=== PATIENT | male | born 1985 | race Caucasian/White ===

== ENCOUNTER 2021-03-27 00:25 | Emergency (ER) | payer SELFPAY ==
[~2021-03-27] VITALS: Ht 188 cm; Wt 90.9 kg
[2021-03-27 00:25] VITALS: BP 131/87
[2021-03-27 01:20] LABS: COVID AG,FIA SOURCE NASOPHARYNGEAL
== END 2021-03-27 02:12 | disposition left against medical advice (07) ==
LOC: EMS 00:25
DX: Z20.822 Contact with and (suspected) exposure to COVID-19 (principal); Z53.21 Procedure and treatment not carried out due to patient leaving prior to being seen by health care provider

== ENCOUNTER 2021-03-29 16:33 | Emergency (ER) | payer BC ==
[~2021-03-29] VITALS: Ht 185.4 cm; Wt 104.5 kg
[2021-03-29 16:42] VITALS: BP 150/80
== END 2021-03-29 17:19 | disposition home or self-care (01) ==
LOC: EMS 16:36
DX: Z20.822 Contact with and (suspected) exposure to COVID-19 (principal); F17.210 Nicotine dependence, cigarettes, uncomplicated
CPT/HCPCS: 99283; U0003